=== PATIENT | female | born 1940 | race African-American/Black ===

== ENCOUNTER → 2017-04-26 | Outpatient (CLI) | payer OTHER ==
--- NOTE | ~2017-04-26 | CNG ---
[facility] [place] [address] CYTO-NONGYN REPORT PROCEDURE Name: JYOTHI ZAVALA Room #: REG [facility] Gabbi.#: [id number] Admission: 04/26/17 Date of : 36 Discharge: Report #: [id number] Path Case #: [id number] CYTOPATHOLOGY REPORT COLLECTION DATE: 04/26/2017 RECEIVED DATE: 04/26/2017 SUBMITTING PHYS: Dr. Fabrizio Guevara OTHER PHYS: Dr. Kristi Dugan CLINICAL HISTORY: Right parotid FNA SPECIMEN(S) RECEIVED: A.Fine needle aspiration, Right parotid * * * * * * * * * * * * FINAL DIAGNOSIS: A. 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 PATHOLOGIST: Sowmya Gorman M.D. REPORT ELECTRONICALLY SIGNED BY: Sowmya Gorman M.D. DATE/TIME: 04/27/2017 15:09 * * * * * * * * * * * * GROSS PATHOLOGY: A. Fine needle aspiration, Right parotid: The specimen is labeled "Jyothi Zavala" and consists of two air dried slides, two fixed slides. Seventeen mL of clear light pink fluid in fixative from the needle rinse is also submitted and one ThinPrep slide was prepared from this material. One RNA retain vial was received. (mm 04.26.2017) RESEARCH RECRUITER(S): JON Villalobos(ASCP) INITIAL CPT CODE(S): A; 31826 Professional services performed by [facility] at [facility] [address], [place] [address] Technical services performed by [facility] at [address] [place] [address]., [address], [place] [address]. [facility] [address] [place] [address], [address] [place] [address] [facility] [address] [address] CYTO-NONGYN REPORT PROCEDURE Name: JYOTHI ZAVALA Room #: [facility] Liang.#: [id number] Admission: 04/26/17 Date of : 36 Discharge: Report #: [id number] Path Case #: [id number] PHONE: [phone] DIRECTOR: Brian Nicolas M.D. * * * END OF REPORT * * *
== END | disposition home or self-care (01) ==
LOC: ULTRA 08:31
DX: D11.0 Benign neoplasm of parotid gland (principal)

== ENCOUNTER 2021-04-06 00:48 | Emergency (ER) | payer OTHER ==
[~2021-04-06] VITALS: Ht 162.6 cm; Wt 77.1 kg
[2021-04-06] MEDS ORDERED: HALLS DEFENSE60 MG PO (00:56)
[2021-04-06] MEDS ORDERED: [UNRECOGNIZED DRUG - REMARK] (00:56)
[2021-04-06 01:28] LABS: ABSOLUTE NEUTROPHILS 3.4 thou/uL (1.4-8.2); BASOPHILS 0.6 % (0.0-2.0); EOSINOPHILS 2.2 % (0.0-3.0); HEMATOCRIT 36.3 % (37.0-47.0); HEMOGLOBIN 11.7 gm/dL (12.0-15.0); LYMPHOCYTES 28.7 % (24.0-44.0); MCH 28.7 pg (26.0-34.0); MCHC 32.1 g/dL (28.0-37.0); MCV 89.2 fL (80.0-100.0); MONOCYTES 12.1 % (1.0-8.0); PLATELET COUNT 151 thou/uL (150-400); POLYS 56.4 % (36.0-66.0); RBC 4.07 mil/uL (4.20-5.00); RDW 13.8 % (10.5-14.5)
[2021-04-06 01:31] LABS: ANION GAP 15 mmol/L (7-16); BUN 19 mg/dL (7-18); CHLORIDE 109 mmol/L (98-107); CO2 27 mmol/L (21-32); CREATININE 1.3 mg/dL (0.6-1.0); GLUCOSE 128 mg/dL (74-106); POTASSIUM 3.7 mmol/L (3.5-5.1); SODIUM 151 mmol/L (136-145)
[2021-04-06] MEDS ORDERED: PRED FORTE 1% EY5 M1 OPHTHALMIC (01:35)
[2021-04-06] MEDS ORDERED: COSOPT OCUMETER10 M1 OPHTHALMIC (01:35)
[2021-04-06] MEDS ORDERED: LATANOPROST 0.2.5 ML OPHTHALMIC (01:36)
[2021-04-06 01:40] LABS: TROPONIN-I <0.06 ng/mL (<0.06)
[2021-04-06] MEDS ORDERED: ASA81BEC PO (01:42)
[2021-04-06 04:48] VITALS: BP 131/78
--- NOTE | 2021-04-07 08:41 | EKG ---
[address] [place] [address] ELECTROCARDIOGRAM REPORT Name: JYOTHI ZAVALA [id number] Admission: 04/06/21 Attend Phys: Discharge: 04/06/21 Date of : 36 Report #: [id number] [facility] ED Test Date: 2021-04-06 Test Time: 00:55:23 Pat Name: JYOTHI ZAVALA Department: Room: Gender: F Table Attendant: JOSH : 1940 Requested By: Casey Mcgraw Order Number: [id number] MD: Dereje Jensen Measurements Intervals [place] Rate: 68 P: 69 AL: 165 QRS: 38 QRSD: 95 T: 30 QT: 407 QTc: 433 Interpretive Statements Sinus rhythm Borderline T abnormalities, lateral leads Compared to ECG 08/23/2007 10:47:19 T-wave abnormality now present Sinus bradycardia no longer present Electronically Signed On 04-07-2021 8:40:59 CDT by Dereje Jensen [email or web address] <ELECTRONICALLY SIGNED> By: Dereje Jensen MD, [facility] 04/07/21 0840 0055 Dereje Jensen MD, FACC /EPI
--- NOTE | 2021-04-07 08:42 | EKG ---
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 : 1940 Requested By: Casey Mcgraw Order Number: [id number] MD: Dereje Jensen Measurements Intervals [place] Rate: 73 P: 63 WI: 171 QRS: 16 QRSD: 81 T: 87 QT: 459 QTc: 506 Interpretive Statements Sinus rhythm Nonspecific T wave abnormality Prolonged QT interval Compared to ECG 04/06/2021 00:55:23 Prolonged QT interval now present Electronically Signed On 04-07-2021 8:41:48 CDT by Dereje Jensen [email or web address] <ELECTRONICALLY SIGNED> By: Dereje Jensen MD, [facility] 04/07/21 0841 0327 0327 Dereje Jensen MD, FACC /EPI
== END 2021-04-06 04:30 | disposition home or self-care (01) ==
LOC: ER 00:48
PROVIDERS: Emergency Medicine
DX: R07.89 Other chest pain (principal); M79.602 Pain in left arm; Z98.51 Tubal ligation status; Z79.82 Long term (current) use of aspirin

== ENCOUNTER → 2021-04-08 | Outpatient (CLI) | payer OTHER ==
[~2021-04-08] MED LIST: ASA81BEC PO; COSOPT OCUMETER10 M1 OPHTHALMIC; HALLS DEFENSE60 MG PO; LATANOPROST 0.2.5 ML OPHTHALMIC; PRED FORTE 1% EY5 M1 OPHTHALMIC; [UNRECOGNIZED DRUG - REMARK]
== END ==
LOC: SJCVC 14:24
PROVIDERS: ATTEND Internal Medicine Cardiovascular Disease
DX: R07.9 Chest pain, unspecified (principal); I10 Essential (primary) hypertension; K21.9 Gastro-esophageal reflux disease without esophagitis; M19.90 Unspecified osteoarthritis, unspecified site; H40.9 Unspecified glaucoma; Z87.898 Personal history of other specified conditions; Z79.82 Long term (current) use of aspirin; Z79.899 Other long term (current) drug therapy; Z72.89 Other problems related to lifestyle

== ENCOUNTER → 2021-04-18 | Outpatient (CLI) | payer OTHER | LOC: SJCVCIMAG 07:53 | PROVIDERS: ATTEND Internal Medicine Cardiovascular Disease | DX: I08.1 Rheumatic disorders of both mitral and tricuspid valves (principal); I49.3 Ventricular premature depolarization; I49.1 Atrial premature depolarization; I10 Essential (primary) hypertension; K21.9 Gastro-esophageal reflux disease without esophagitis; I77.819 Aortic ectasia, unspecified site; M19.90 Unspecified osteoarthritis, unspecified site; Z79.82 Long term (current) use of aspirin; Z79.899 Other long term (current) drug therapy; Z87.898 Personal history of other specified conditions ==

== ENCOUNTER → 2021-04-29 | Outpatient (CLI) | payer OTHER ==
[~2021-04-29] VITALS: Ht 162.6 cm; Wt 77.1 kg
[2021-04-29 08:39] VITALS: BP 149/66
--- NOTE | 2021-04-29 14:41 | CATHLAB ---
[facility] [place] [address] INVASIVE PROCEDURE REPORT Name: JYOTHI ZAVALA Room #: REG [facility] Avina#: [id number] Admission: 04/29/21 Attend Phys: Allen Bennett MD Discharge: Date of : 36 Report #: [id number] THIS REPORT FOR: cc: [facility] - Clinic physician unknown [facility] - Clinic physician unknown Allen Bennett MD ~ APPROVED REPORT Study performed: 04/29/2021 09:03:43 Patient Details Patient Status: Out-Patient Room #: The patient is a 80 year-old female Event Personnel Allen Bennett Plasterer Helper, Alice Rodriguez RN RN, Mekhi Garrido RTR Scrub, , Sofie, Princess CVT Monitor Procedures Performed Art Access - R femoral artery* Left Heart Cath w/or w/o Coronaries [id number] [facility] Hemostasis with Manual pressure 73676 Initial Mod Sed Same Phys/QHP Gr5y 197684 09428 Mod Sed Same Phys/QHP Ea 784158 Indication Dyspnea, Positive stress test, Chest pain Risk Factors Hypercholesterolemia, Hypertension Procedure Narrative The Right Groin^ was infiltrated with 1% Lidocaine subcutaneous anesthesia. A PINNACLE 4FR Sheath #[id number] sheath was inserted into the RFA ^. Coronary angiography was performed using coronary diagnostic catheters. The right coronary system was accessed and visualized with a JR4 catheter. The left coronary system was accessed and visualized with a JL4 catheter. The left ventricle was accessed and visualized with a PIGTAIL catheter. Hemostasis was obtained with manual pressure following sheath removal without any complications. The patient tolerated the procedure well and there were no complications associated with the procedure. There was no hematoma. Intraoperative Conscious Sedation [facility] [address] [place] [address] INVASIVE PROCEDURE REPORT Name: ZAVALAJYOTHI FRIEDMANERNE Room #: REG CL [facility]#: [id number] Admission: 04/29/21 Attend Phys: Allen Bennett MD Discharge: Date of : 36 Report #: [id number] Sedation start time: 9:54 Case end Time: 10:28 Fentanyl 50 mcg Versed 1 mg Fluoro Time: 1.60 minutes Dose: DAP 1799.30 cGycm2 250 mGy Contrast Type and Amount: Visipaque 40 ml Coronary Angiography The patient's coronary anatomy is co- dominant. Diagnostic Cath Left Main The left main artery is a large-caliber vessel, patent with no flow-limiting lesions. LAD The LAD is a moderate-sized caliber vessel, traverses the anterior wall and wraps around the apex. There is mild disease in the proximal segment. The mid segment of the LAD has mild to moderate diffuse disease, 30 to 40%. Diagonal 1 This is a small to modest sized caliber vessel, patent with no flow-limiting lesions. Circumflex The left circumflex artery is a moderate-sized caliber vessel, patent with no flow-limiting lesions. The distal segment supplies 2 OM vessels. This is a codominant vessel. OM1 The first obtuse marginal artery originates from the distal left circumflex artery. This is a small to modest sized caliber vessel, patent with no flow-limiting lesions. OM2 This is a small to modest sized caliber vessel, patent with no flow-limiting lesions. Right Coronary The RCA is a moderate sized caliber vessel, patent with no flow-limiting lesions. R PDA This is a small to modest sized caliber vessel, patent with no flow-limiting lesions. Left Ventriculography Left Ventriculography was not performed. Ejection Fraction was 55-60% based off patient's Nuclear Cardiac Stress Test. An LVEDP was measured and there is no gradient across the outflow tract. Hemodynamics The aortic pressure is 123/55 mmHg with a mean of 72 mmHg. The left ventricular pressure is 110/8 mmHg with a mean of mmHg. The left ventricular end diastolic pressure is 23 mmHg. Conclusion 1. 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 [facility] [address] [place] [address] INVASIVE PROCEDURE REPORT Name: JYOTHI ZAVALA Room #: REG [facility]#: [id number] Admission: 04/29/21 Attend Phys: Allen Bennett MD Discharge: Date of : 36 Report #: [id number] 2. This is a codominant system. 3. There is normal LV systolic function. 4. Recommend aggressive risk factor management. <ELECTRONICALLY SIGNED> By: Allen Bennett MD 04/29/21 144 40 40 Allen Bennett MD /INF
== END | disposition home or self-care (01) ==
LOC: CATH 07:55
PROVIDERS: ATTEND Internal Medicine Cardiovascular Disease
DX: R94.39 Abnormal result of other cardiovascular function study (principal); R07.9 Chest pain, unspecified; I25.10 Atherosclerotic heart disease of native coronary artery without angina pectoris; I10 Essential (primary) hypertension; E78.00 Pure hypercholesterolemia, unspecified; R06.00 Dyspnea, unspecified; M19.90 Unspecified osteoarthritis, unspecified site; K21.9 Gastro-esophageal reflux disease without esophagitis; Z98.890 Other specified postprocedural states; Z79.899 Other long term (current) drug therapy; Z79.82 Long term (current) use of aspirin

== ENCOUNTER → 2021-05-20 | Outpatient (CLI) | payer OTHER | LOC: SJCVC 11:29 | PROVIDERS: ATTEND Internal Medicine Cardiovascular Disease | DX: R94.31 Abnormal electrocardiogram [ECG] [EKG] (principal); I25.10 Atherosclerotic heart disease of native coronary artery without angina pectoris; I10 Essential (primary) hypertension; K21.9 Gastro-esophageal reflux disease without esophagitis; E78.00 Pure hypercholesterolemia, unspecified; M19.90 Unspecified osteoarthritis, unspecified site; I34.0 Nonrheumatic mitral (valve) insufficiency; Z98.890 Other specified postprocedural states; Z79.82 Long term (current) use of aspirin; Z79.899 Other long term (current) drug therapy ==

== ENCOUNTER → 2021-11-12 | Outpatient (CLI) | payer OTHER | LOC: SJCVC 11:35 | PROVIDERS: ATTEND Internal Medicine Cardiovascular Disease | DX: I25.10 Atherosclerotic heart disease of native coronary artery without angina pectoris (principal); I10 Essential (primary) hypertension; E78.00 Pure hypercholesterolemia, unspecified; K21.9 Gastro-esophageal reflux disease without esophagitis; Z87.898 Personal history of other specified conditions; Z79.82 Long term (current) use of aspirin; Z79.899 Other long term (current) drug therapy; Z72.89 Other problems related to lifestyle ==

== ENCOUNTER → 2021-12-02 | Outpatient (CLI) | payer OTHER | LOC: SJCVC 13:42 | PROVIDERS: ATTEND Internal Medicine Cardiovascular Disease | DX: R94.31 Abnormal electrocardiogram [ECG] [EKG] (principal); K21.9 Gastro-esophageal reflux disease without esophagitis; E78.00 Pure hypercholesterolemia, unspecified; I25.10 Atherosclerotic heart disease of native coronary artery without angina pectoris; I10 Essential (primary) hypertension; Z87.898 Personal history of other specified conditions; Z79.82 Long term (current) use of aspirin; Z79.899 Other long term (current) drug therapy; Z72.89 Other problems related to lifestyle ==